=== PATIENT | female | born 1955 | race American Indian/Alaskan Native ===

== ENCOUNTER 2019-12-09 13:41 | Emergency (ER) | payer SELFPAY ==
[2019-12-09 14:32] VITALS: BP 163/91
--- NOTE | 2019-12-09 14:36 | Emergency Department Report ---
Chief Complaint: Upper Respiratory Infection Stated Complaint: FLU Time Seen by Provider: 12/09/19 14:30 - HPI History of Present Illness: 64 y/o female comes in for chest congestion and no voice sore throat cough and sneezing since Thursday. PMH HTN - Exam Physical Exam: AxO times 3 NAD non toxic in appearance. Chest CTA Heart RRR. Ambulatory without difficulties. MSE screening note: Focused history and physical exam performed. Due to findings the following was ordered: 64 y/o female comes in for chest congestion and no voice sore throat cough and sneezing since Thursday. PMH HTN Recommend over the counter Clartin and Robitussin ED Disposition for MSE Disposition: MED SCREENING EXAM-LEFT Is pt being admited?: No Does the pt Need Aspirin: No Condition: Stable Instructions: Viral Syndrome (ED) Additional Instructions: Recommend over the counter Clartin and Robitussin F/U at [facility] Referrals: [facility] [Provider Group] - 3-5 Days
== END 2019-12-09 15:51 | disposition left against medical advice (07) ==
LOC: ED 13:41
DX: R09.89 Other specified symptoms and signs involving the circulatory and respiratory systems (principal)